=== PATIENT | male | born 1990 | race African-American/Black ===

== ENCOUNTER 2024-10-27 17:26 | Emergency (ER) | payer BC, SELFPAY ==
[2024-10-27 17:30] VITALS: BP 127/80
[2024-10-27 17:52] LABS: Hematocrit 41.6 % (39.0-52.0); Hemoglobin 13.9 g/dL (13.0-18.0); Mean Corp Hgb Conc. 33.4 g/dL (33.0-37.0); Mean Corpuscular Volume 93.1 fL (80.0-94.0); Nucleated Red Blood Cells % 0 % (-); Platelet Count 223 10^3/uL (130-400); Red Cell Dist. Width 11.5 % (11.5-14.5)
[2024-10-27 17:54] LABS: Urine Character Slightly Cloudy (Clear)
[2024-10-27 18:01] LABS: Urine Squamous Cell 0-2 /LPF (Few)
[2024-10-27 18:02] LABS: Urine Red Blood Cell 0-2 /HPF (0-2); Urine White Cell 0-2 /HPF (0-5)
[2024-10-27 18:24] LABS: ALT (SGPT) 19 U/L (0-50); AST (SGOT) 25 U/L (17-59); Albumin 4.2 g/dl (3.5-5.0); Alkaline Phosphatase 61 U/L (38-126); Blood Urea Nitrogen 13 mg/dl (9-20); Calcium 9.1 mg/dl (8.4-10.2); Carbon Dioxide 28 mmol/L (22-30); Chloride 102 mmol/L (98-107); Glucose 103 mg/dl (70-99); Potassium 4.3 mmol/L (3.5-5.1); Sodium 138 mmol/L (135-145); Total Protein 7.3 g/dl (6.3-8.2); eGFR > 60.00
--- NOTE | 2024-10-27 19:18 | ED.GENMED ---
History of Present Illness
General
Chief Complaint: Fever
Source: patient and spouse
Exam Limitations: none
Time Seen by Provider: 10/27/24 18:53
Nursing documentation reviewed up to this point in time: agreed with
History of Present Illness
History of Present Illness:
33-year-old male presents emergency department due to fevers, body aches and cough as well as low back pain since Tuesday. He started not feeling well on Tuesday. He returned from a trip to [place], [place] on Tuesday, having been there for 5 days. He
does not spend time outside. He was only at a resort, denies any bug bites. He did not go swimming in the [place].
Past History
Past History
ED Past Medical History: None
ED Past Surgical History: Other (uvula)
Social History
Tobacco: Non-smoker
Alcohol: None
Drug: None
Living: with family
Review of Systems
Review of Systems
Allergies reviewed?: Yes
All Other Systems: Not applicable
Constitutional: Reports fever
EENT: Reports no symptoms
Respiratory: Reports cough
Cardiac: Reports no symptoms
ABD/GI: Reports no symptoms
: Reports no symptoms
Musculoskeletal: Reports muscle pain
Skin: Reports no symptoms
Neurological: Reports no symptoms
Endocrine: Reports no symptoms
Hematologic/Lymphatic: Reports no symptoms
Psychiatric: Reports no symptoms
Phy Exam
Physical Exam
Physical Exam:
Physical Exam
General: no apparent distress, not acutely ill
Neck: supple. no meningeal signs. normal posterior pharynx
Heart: s1/s2 regular rate and rhythm, no murmur. equal radial
pulses.
HEENT: Pupils equal round reactive to light, EOMI
Lungs: no acute respiratory distress. clear bilaterally
Abdomen: normal bowel sounds. not tender. no CVAT
Neuro: alert and oriented. no focal neurological deficits cranial nerves II through XII intact
Skin: no rash
Psychiatric: well kept. interactive and cooperative
Extremities: no edema. no calf tenderness. negative homans. good distal pulses
Course
Orders/Labs/Results
Orders:
Orders
10/27/24 17:40
Complete Blood Count/With Diff Urgent
Comprehensive Metabolic Panel Urgent
Urinalysis Reflex To Culture Urgent
Date Specimen was Collected: 10/27/24
Time Specimen was Collected: 17:34
Urine Microscopic Reflex Cult Urgent
10/27/24 19:01
CR Chest - 2 Views Urgent
Comment:
Reason For Exam: fever
10/27/24 19:15
COVID-19 Antigen Urgent
Source: Nasal Swab
Influenza A+B Rapid Molecular Urgent
JEAN Source: Nasal Swab
Specimen Description:
10/27/24 20:03
Ketorolac [Toradol] 15 mg IM NOW STA
10/27/24 20:06
Amoxicillin [Amoxil] 500 mg PO NOW STA
Azithromycin [Zithromax] 500 mg PO NOW STA
Abnormal Lab Results
10/27/24
17:40
WBC 11.4 H 10^3/uL
(4.8-10.8)
RBC 4.47 L 10^6/uL
(4.70-6.10)
MCH 31.1 H pg
(27.0-31.0)
Abs Immat Gran (auto) 0.1 H 10^3/uL
(0-0.05)
Absolute Neuts (auto) 7.9 H 10^3/uL
(1.4-6.5)
Absolute Monos (auto) 1.6 H 10^3/uL
(0.1-0.6)
Lymphocytes % 14.3 L %
(20.5-51.1)
Monocytes % 13.9 H %
(1.7-9.3)
Glucose 103 H mg/dl
(70-99)
Ur Occult Blood Reflex 2+ A
(Negative)
Urine Bacteria (Reflex) Few A
(Negative)
Urine Albumin (Reflex) 2+ A
(Neg - Trace)
10/27/24 17:40
10/27/24 17:40
Vital Signs
Initial and Last Documented VS:
Initial Vital Signs
Temp Pulse Resp BP Pulse Ox
100.1 F 93 18 127/80 99
10/27/24 17:30 10/27/24 17:30 10/27/24 17:30 10/27/24 17:30 10/27/24 17:30
Last Documented Vital Signs
Temp Pulse Resp BP Pulse Ox
100.1 F 93 18 127/80 99
10/27/24 17:30 10/27/24 17:30 10/27/24 17:30 10/27/24 17:30 10/27/24 19:18
MDM/Problems Addressed
Differential Diagnosis Includes:
Pneumonia, COVID, influenza
MDM/Problems Addressed:
33-year-old male with right-sided pneumonia. Treat with amoxicillin and azithromycin. Stable for discharge.
*Radiology
Radiology exam reviewed: radiology read reviewed (Chest x-ray right lower lobe pneumonia)
*Pulse Oximetry
SaO2: 99
Oxygen Mode of Delivery: Room air
Patient hypoxic: no
*Critical Care Note
Total Time (30-74mins, 75-104mins- exclusive of procedures): Not Applicable
Patient Management
Social determinants of health affecting care: Living situation and Strong social support
Escalation/DeEscalation of care consider admission/obs:
Admit not indicated
ED Attending Note
-
Portions of this chart may have been created with voice recognition software.� Occasional wrong word or��sound alike� substitutions may have occurred due to the inherent limitations of voice recognition software.
Discharge Plan
Departure
Patient Disposition: Home (Routine Discharge)
Date of Disposition: 10/27/24
Time of Disposition: 20:07
Patient with high blood pressure during this ER visit?: Yes
Condition: Good
Discharge Problem:
Pneumonia
Instructions: Pneumonia in adults, BLOOD PRESSURE
Prescriptions:
New
azithromycin [Zithromax] 250 mg tablet
250 mg PO DAILY 4 Days Qty: 4 0RF
amoxicillin 500 mg capsule
500 mg PO TID Qty: 21 0RF
Stand Alone Forms: Return to Work
Interventions
Interventions:
*Risk Screen - Suicide Last Done: 10/27/24 17:31
*General Assessment Last Done: 10/27/24 17:31
*Neglect/Abuse Screening Last Done: 10/27/24 17:31
*Nursing Disposition Last Done: 10/27/24 20:46
ED- Neurological Assessment Last Done: 10/27/24 18:43
ED-Skin Assessment Last Done: 10/27/24 18:44
Discharge Date and Time
Discharge Date/Time: 10/27/24 20:46
Print Language: CHINESE
[2024-10-27 19:41] LABS: COVID-19 Antigen Negative (Negative)
[2024-10-27] MEDS: AMOXIL 500 MG PO (20:33)
[2024-10-27] MEDS: ZITHROMAX 500 MG PO (20:33)
[2024-10-27] MEDS: TORADOL 15 MG IM (20:34)
== END 2024-10-27 20:46 | disposition home or self-care (01) ==
LOC: EMR 17:26
PROVIDERS: Student in an Organized Health Care Education/Training Program; EMERGENCY PHYSICIAN Emergency Medicine; FAMILY PHYSICIAN Family Medicine
DX: J18.9 Pneumonia, unspecified organism (principal); M54.50 Low back pain, unspecified; Z11.52 Encounter for screening for COVID-19
CPT/HCPCS: 99284; 96372; 71046; 80053; 81003; 81015; 85025; 87502; 87811